=== PATIENT | female | born 1960 | race African-American/Black ===

== ENCOUNTER → 2021-10-08 | Outpatient (CLI) | payer OTHER ==
[2021-09-16 11:00] VITALS: BP 150/67
[~2021-10-08] MED LIST: ATOR20TA PO; ESOM40CA PO; ESTR2TAB3 PO; FAMO40TA57 PO; HYDR-2765 PO; LEVO25TA52 PO; LEVO75TA5 PO; MECL-75 PO; METO-239 PO; METO-269 PO; NORT10CA PO; POTA20LI2 PEG; POTA20TA4 PO; PRED20TA PO; PREG150C PO; SERT-267 PO; TIZA-75 PO; TRIA15OI TP; TRIA1TAB3 TP
[2021-10-08] MEDS: IOHEXOL 240 MG/ML 50ML VIAL. PO ONE (14:23)
[2021-10-08] MEDS: IOHEXOL 300 MG/ML 100ML VIAL. IV ONE (14:23)
--- NOTE | 2021-10-08 14:42 | KCIC ---
CT scan of the abdomen and pelvis with contrast 10/08/2021 CLINICAL HISTORY: Abdominal pain. Appendectomy on September 11 of this year. TECHNIQUE: After the oral administration contrast and the intravenous administration of 100 cc of Omn ipaque 300, contiguous, 5 mm axial sections were obtained through the abdomen and pelvis. One or more of the following individualized dose reduction techniques were utilized for this study: 1. Automated exposure control. 2. Adjustment of the mA and/or kV according to patient size. 3. Use of iterative reconstruction technique. FINDINGS: Comparison study is dated 09/11/2021. Images through the lung bases demonstrate minimal dependent subsegmental atelectasis bilaterally. A 1 cm calcified granuloma is again seen involving the left lower lobe. The liver parenchyma has a decreased attenuation consistent with fatty infiltration. Calcified granul omas are seen scattered throughout the spleen. The pancreas, adrenal glands and right kidney are with in normal limits. Nonobstructing calculi are seen involving the left kidney which measure 1 to 2 mm i n size. The abdominal aorta tapers normally. The gallbladder is well-distended. No free fluid or free air is seen within the abdomen. There is no evidence of bowel obstruction. Surgical changes are seen consist ent with an appendectomy. No abnormal fluid collection is seen to suggest evidence of an abscess. Air and stool are seen throughout the colon. Images through the pelvis demonstrate the urinary bladder distended with urine. Calcifications are se en within the pelvis consistent with phleboliths. The patient appears to be post hysterectomy. No adn exal mass is seen. No free fluid is noted. The osseous structures are unchanged. IMPRESSION: Post appendectomy. No acute abnormality is seen. Electronically signed by: Brandon Powell MD (10/08/2021 2:40 PM) [id number]
== END ==
LOC: KCIC CT 13:12
PROVIDERS: ATTEND Nurse Practitioner Family
DX: J84.10 Pulmonary fibrosis, unspecified (principal); D73.89 Other diseases of spleen; K76.89 Other specified diseases of liver; N20.0 Calculus of kidney; K37 Unspecified appendicitis; Z98.890 Other specified postprocedural states
CPT/HCPCS: 74177; Q9966; Q9967

== ENCOUNTER → 2021-11-05 | Day surgery (SDC) | payer OTHER ==
[~2021-11-05] VITALS: Ht 165.1 cm; Wt 138.6 kg
[~2021-11-05] MED LIST changes: +CHOL5000 PO; +IV RINGERS,LACTATED 1000ML 1,000 ML IV ONE; +LIDOCAINE 2% PF 5 ML VIAL. ONE; +PROPOFOL 10 MG/ML (20ML) VIAL. IV ONE
[2021-11-05 13:44] VITALS: BP 173/93
--- NOTE | 2021-11-05 14:51 | PDOC4 ---
PROCEDURE Procedure EGD/colonoscopy Indication: Heartburn, r/o Kraft's/screening. Meds: per anesthesia. Findings: E--healed reflux at 40cm, baseline grade indeterminate. G--Normal D--Normal. SARAH-normal. --'Scope advanced to cecum. Prep adequate. Mucosa normal. No diverticulosis, polyps, masses, etc. Small IH's on retroflex. Denice. well. IMP: Healed GERD No Kraft's. Internal hemorrhoids. REC: Continue meds, diet as before. Reassure. Will have her f/u in 2 weeks to further discuss. Repeat colonoscopy in 10 years. CONSTANTINO LUX MD Nov 05, 2021 14:50
[2021-11-05 15:12] VITALS: BP 145/74
== END | disposition home or self-care (01) ==
LOC: SURG 13:19
PROVIDERS: ATTEND Internal Medicine Gastroenterology
DX: K59.00 Constipation, unspecified (principal); R12 Heartburn; K64.0 First degree hemorrhoids; K21.00 Gastro-esophageal reflux disease with esophagitis, without bleeding; K44.9 Diaphragmatic hernia without obstruction or gangrene; K63.89 Other specified diseases of intestine; K31.89 Other diseases of stomach and duodenum; E66.3 Overweight; I10 Essential (primary) hypertension; G47.30 Sleep apnea, unspecified; M19.90 Unspecified osteoarthritis, unspecified site; F32.9 Major depressive disorder, single episode, unspecified; Z79.899 Other long term (current) drug therapy; Z98.890 Other specified postprocedural states; Z88.8 Allergy status to other drugs, medicaments and biological substances; Z68.43 Body mass index [BMI] 50.0-59.9, adult
CPT/HCPCS: 43235; 45378; J2704

== ENCOUNTER → 2022-01-06 | Outpatient (CLI) | payer OTHER ==
[2021-11-05 15:12] VITALS: BP 145/74
[~2022-01-06] MED LIST changes: -IV RINGERS,LACTATED 1000ML 1,000 ML IV ONE; -LIDOCAINE 2% PF 5 ML VIAL. ONE; -PROPOFOL 10 MG/ML (20ML) VIAL. IV ONE
--- NOTE | 2022-01-06 09:21 | RAD ---
EXAM: Abdomen sonogram. HISTORY: Epigastric pain. TECHNIQUE: Sonographic imaging of the abdomen was performed. COMPARISON: None. FINDINGS: The liver is normal in size. There is hepatic steatosis. No focal hepatic lesion is seen. T he gallbladder is unremarkable. The common bile duct is normal in caliber. The kidneys are normal in size. There is no solid or cystic renal lesion. There is no hydronephrosis. The pancreas, spleen and visualized portions of the aorta and inferior vena cava are unremarkable. IMPRESSION: 1. Hepatic steatosis. 2. No acute sonographic finding. Electronically signed by: Grecia Mercedes MD (01/06/2022 9:19 AM) [id number]
--- NOTE | 2022-01-06 10:51 | RAD ---
EXAM: Nuclear hepatobiliary scan. HISTORY: Pain. TECHNIQUE: Following intravenous administration of 5.5 mCi Tc 99m Choletec, anterior images of the ab domen were obtained at five minute intervals through one hour. Subsequently, CCK was administered and additional images to assess gallbladder ejection fraction were obtained. FINDINGS: There is prompt radiotracer uptake by the liver. No focal defect is seen. There is normal e xcretion into the biliary tree. The gallbladder is visualized within 5 minutes and there is free flow into the duodenum. The gallbladder ejection fraction is 91 percent. IMPRESSION: High gallbladder ejection fraction of 91 percent. This can be associated with biliary hyp erkinesia. Electronically signed by: Grecia Mercedes MD (01/06/2022 10:48 AM) [id number]
== END ==
LOC: US 07:32
PROVIDERS: ATTEND Internal Medicine Gastroenterology
DX: K76.0 Fatty (change of) liver, not elsewhere classified (principal); R10.13 Epigastric pain
CPT/HCPCS: 76700; 78227; A9537